=== PATIENT | female | born 1990 | race Two or more races ===

== ENCOUNTER 2024-02-22 03:50 | Emergency (ER) | payer OTHER ==
[~2024-02-22] VITALS: Ht 154.9 cm; Wt 43.1 kg
[2024-02-22 04:20] VITALS: BP 116/76; TEMP 98.6; O2SAT 98
== END 2024-02-22 05:56 | disposition left against medical advice (07) ==
LOC: ER 03:53
DX: R05.9 Cough, unspecified (principal); M79.10 Myalgia, unspecified site; Z11.7 Encounter for testing for latent tuberculosis infection
CPT/HCPCS: 71045-TC